=== PATIENT | female | born 1990 ===

== ENCOUNTER 2025-03-23 08:41 | Day surgery (SDC) | payer OTHER | END 2025-03-23 20:00 | disposition home or self-care (01) | LOC: AMB-ENDOS 08:41 | PROVIDERS: ATTEND Colon & Rectal Surgery | DX: K62.5 Hemorrhage of anus and rectum (principal); K63.5 Polyp of colon; K57.30 Diverticulosis of large intestine without perforation or abscess without bleeding ==